=== PATIENT | female | born 2000 | race Two or more races ===

== ENCOUNTER 2021-11-09 23:09 | Day surgery (SDC) | payer OTHER ==
[2021-11-10] MEDS ORDERED: hydrALAZINE 20 MG/ML VIAL SLOW IVP PRN (00:01)
== END 2021-11-10 02:35 | disposition home or self-care (01) ==
LOC: CSHLD/OP 23:09
PROVIDERS: ATTEND Obstetrics & Gynecology
DX: O47.1 False labor at or after 37 completed weeks of gestation (principal); Z3A.37 37 weeks gestation of pregnancy
CPT/HCPCS: 99283

== ENCOUNTER 2021-11-16 12:20 | Outpatient (CLI) | payer OTHER ==
[2021-11-17 17:03] LABS: SARS-CoV-2 PCR by NAA Not Detected (NotDetected)
== END 2021-11-16 12:21 | disposition home or self-care (01) ==
LOC: CSHLAB 12:20
PROVIDERS: ATTEND Obstetrics & Gynecology
DX: Z20.822 Contact with and (suspected) exposure to COVID-19 (principal)
CPT/HCPCS: U0003; U0005

== ENCOUNTER 2021-11-21 05:03 | Inpatient (IN) | payer OTHER ==
[2021-11-21 06:19] VITALS: BMI 31.1
[2021-11-21] MEDS ORDERED: Methylergonovine 0.2 MG/ML VIAL IM PRN ×2 (06:30→19:52)
[2021-11-21] MEDS ORDERED: NS w/ Oxytocin 30 units 500 ML IV SCH ×3 (06:30→20:30)
[2021-11-21] MEDS ORDERED: Ondansetron PF 4 MG/2 ML Vial IVP PRN ×3 (06:30→19:52)
[2021-11-21] MEDS ORDERED: Carboprost 250 MCG/ML AMP IM PRN (06:30)
[2021-11-21] MEDS ORDERED: Lactated Ringer's 1,000 ML IV SCH (06:30)
[2021-11-21] MEDS ORDERED: Butorphanol Tartrate 1 MG/ML VIAL SLOW IVP PRN (06:30)
[2021-11-21] MEDS ORDERED: Lidocaine 1% (PF) 30 ML VIAL SC PRN (06:30)
[2021-11-21] MEDS ORDERED: Ibuprofen 800 MG TAB PO PRN (06:30)
[2021-11-21] MEDS ORDERED: Promethazine HCl 25 MG/ML VIAL IM PRN ×2 (06:30→10:13)
[2021-11-21] MEDS ORDERED: hydrALAZINE 20 MG/ML VIAL SLOW IVP PRN ×2 (06:30→19:52)
[2021-11-21] MEDS ORDERED: Acetaminophen 500 MG TAB PO PRN (06:30)
[2021-11-21] MEDS ORDERED: Misoprostol 200 MCG TAB RC PRN (06:30)
[2021-11-21 06:51] LABS: Mean Corpuscular HGB CONC 32.4 g/dL (32.0-36.0); Mean Corpuscular Hemoglobin 25.8 pg (27.0-33.0); Mean Corpuscular Volume 79.6 fl (81.6-98.3); Mean Platelet Volume 11.3 fl (7.4-10.4); Platelet Count 184 10x3/uL (150-450); RBC Distribution Width 14.7 % (11.5-14.5); Red Blood Cell (RBC) Count 3.88 10x6/uL (3.90-5.03); White Blood Cell (WBC) Count 9.4 10x3/uL (3.5-10.5)
[2021-11-21 07:53] LABS: Syphilis Antibody Nonreactive (Nonreactive); Syphilis Antibody Index 0.04 S/CO (<1.00 Non-Reactive)
[2021-11-21 08:32] LABS: HIV (1/2) Antibody/Antigen Non-Reactive (NonReactive); HIV 1/2 INDEX 0.07 S/CO (<1.00); Hep B Surf Ag Non-Reactive S/CO (NonReactive)
[2021-11-21] MEDS ORDERED: Butorphanol Tartrate 1 MG/ML VIAL ONE (08:44)
[2021-11-21 08:55] LABS: HBSAg Index 0.16 S/CO (0-0.99)
[2021-11-21] MEDS ORDERED: Fentanyl 2 mcg/Bup 0.1% Cadd 100 ML ONE (09:08)
[2021-11-21] MEDS ORDERED: diphenhydrAMINE 50 MG/ML VIAL IVP PRN (10:13)
[2021-11-21] MEDS ORDERED: Lactated Ringer's 500 ML IV PRN (10:13)
[2021-11-21] MEDS ORDERED: Naloxone HCl 0.4 mg/ml Vial IVP PRN ×2 (10:13)
[2021-11-21] MEDS ORDERED: Acetaminophen 325 MG TAB PO PRN (10:13)
[2021-11-21] MEDS ORDERED: Hydrocerin (Eucerin) Cream 120 gm Jar TOP PRN (10:13)
[2021-11-21] MEDS ORDERED: ePHEDrine Sulfate 50 MG/10 ML VIAL SLOW IVP PRN (10:13)
[2021-11-21] MEDS ORDERED: Fentanyl 2 mcg/Bupivacaine 0.1% Cassette 100 ML EPIDURAL SCH (10:15)
[2021-11-21] MEDS ORDERED: Communication Order-Pharmacy FS SCH (10:15)
[2021-11-21] MEDS ORDERED: Methylergonovine 0.2 MG/ML VIAL ONE ×3 (13:38→16:40)
[2021-11-21] MEDS: Misoprostol 200 MCG TAB ONE (14:37)
[2021-11-21] MEDS ORDERED: Tranexamic Acid 1,000 MG in Sodium Chloride 0.9% 250 ML 250 ML IVPB SCH (15:00)
[2021-11-21] MEDS ORDERED: Carboprost 250 MCG/ML AMP ONE ×2 (15:03→15:11)
[2021-11-21] MEDS ORDERED: Misoprostol 200 MCG TAB ONE (15:03)
[2021-11-21] MEDS ORDERED: Tranexamic Acid 1,000 MG/10 ML VIAL ONE ×3 (15:04→16:12)
[2021-11-21] MEDS ORDERED: ceFAZolin 2 GM/Dextrose 50 ML IVPB ONE (15:37)
[2021-11-21] MEDS ORDERED: Diphenoxylate HCl/Atropine Tablet PO PRN (15:40)
[2021-11-21] MEDS ORDERED: Ondansetron PF 4 MG/2 ML Vial ONE ×2 (15:40→15:43)
[2021-11-21] MEDS ORDERED: Fentanyl 100 MCG/2 ML VIAL ONE ×2 (15:41→17:11)
[2021-11-21] MEDS ORDERED: Midazolam HCl 2 mg/2 ml Vial ONE (15:41)
[2021-11-21] MEDS ORDERED: Rocuronium Bromide 10 MG/ML (10ML VIAL) ONE (15:41)
[2021-11-21] MEDS ORDERED: PROPOFOL 20 ML ONE (15:41)
[2021-11-21] MEDS ORDERED: Fentanyl 250 MCG/5 ML VIAL ONE (15:41)
[2021-11-21] MEDS ORDERED: Lidocaine 1% PF 5 ML VIAL ONE (15:43)
[2021-11-21] MEDS ORDERED: Dexamethasone 4 mg/ml Vial ONE (15:43)
[2021-11-21] MEDS ORDERED: Diphenoxylate HCl/Atropine Tablet PO SCH (15:45)
[2021-11-21] MEDS ORDERED: Succinylcholine 200 MG/10 ml SYRINGE FS ONE (16:02)
[2021-11-21] MEDS ORDERED: Methylergonovine 0.2 MG/ML VIAL IM SCH (16:15)
[2021-11-21] MEDS ORDERED: Esmolol 100 MG/10 ML VIAL ONE (16:35)
[2021-11-21] MEDS ORDERED: Phenylephrine 10 MG/ML VIAL ONE (17:03)
[2021-11-21] MEDS ORDERED: PHENYLEPHRINE-NS 100 MCG/ML 10 ML SYRINGE ONE (17:50)
[2021-11-21 18:18] LABS: Hemoglobin 10.8 g/dL (12.0-15.5); Mean Corpuscular HGB CONC 31.6 g/dL (32.0-36.0); Mean Corpuscular Hemoglobin 26.2 pg (27.0-33.0); Mean Platelet Volume 11.4 fl (7.4-10.4); Platelet Count 176 10x3/uL (150-450); RBC Distribution Width 14.5 % (11.5-14.5); Red Blood Cell (RBC) Count 4.12 10x6/uL (3.90-5.03); White Blood Cell (WBC) Count 23.6 10x3/uL (3.5-10.5)
[2021-11-21 18:40] LABS: Band 9 % (5-11); Lymphocytes 3 % (21-51); Monocytes 8 % (0-10); Neutrophil 77 % (42-75)
[2021-11-21 18:41] LABS: Reactive Lymphocytes 3 % (0-10)
[2021-11-21 18:42] LABS: Anisocytosis SLIGHT = 6-15 cells (100X) (0-5/hpf); Large Platelets MODERATE; Microcytosis SLIGHT = 6-15 cells (100X) (0-5/hpf); Ovalocytes SLIGHT = 2-5 cells (100X) (0-1/hpf)
[2021-11-21 18:43] LABS: Platelet Morphology Comment Appears Adequate
[2021-11-21 18:44] LABS: MDiff Complete? YES
[2021-11-21] MEDS: Tranexamic Acid 1,000 MG in Sodium Chloride 0.9% 250 ML 250 ML IVPB SCH (19:10)
[2021-11-21] MEDS ORDERED: Bisacodyl 10 MG SUPP PR PRN (19:52)
[2021-11-21] MEDS ORDERED: Acetaminophen/Codeine 30-300mg Tablet PO PRN (19:52)
[2021-11-21] MEDS ORDERED: Lanolin Ointment 7 GM TUBE TOP PRN (19:52)
[2021-11-21] MEDS ORDERED: Benzocaine-Menthol 82.5 ML CAN TOP PRN (19:52)
[2021-11-21] MEDS ORDERED: Boostrix 0.5 ML (Tdap) VIAL IM ONE (19:52)
[2021-11-21] MEDS ORDERED: HYDROcodone/Acetaminophen 5/325 mg Tablet PO PRN (19:52)
[2021-11-21] MEDS ORDERED: Milk Of Magnesia 30 ML UDCUP PO PRN (19:52)
[2021-11-21] MEDS: Ibuprofen 800 MG TAB PO PRN (21:01)
[2021-11-22 04:40] LABS: Hemoglobin 9.1 g/dL (12.0-15.5); Mean Corpuscular HGB CONC 32.6 g/dL (32.0-36.0); Mean Corpuscular Hemoglobin 26.9 pg (27.0-33.0); Mean Corpuscular Volume 82.5 fl (81.6-98.3); Mean Platelet Volume 11.5 fl (7.4-10.4); Platelet Count 167 10x3/uL (150-450); RBC Distribution Width 14.4 % (11.5-14.5); Red Blood Cell (RBC) Count 3.38 10x6/uL (3.90-5.03); White Blood Cell (WBC) Count 16.8 10x3/uL (3.5-10.5)
[2021-11-22] MEDS: Ibuprofen 800 MG TAB PO PRN ×3 (05:44→21:03)
[2021-11-22] MEDS: Ferrous Sulfate 325 MG TAB PO SCH ×2 (08:04→16:35)
[2021-11-22] MEDS: Docusate 100 MG CAP PO SCH ×3 (08:04→21:02)
[2021-11-22] MEDS: ceFAZolin 2 GM/Dextrose 50 ML 2 GM in Premix Bag 1 BAG IVPB SCH ×3 (08:04→14:40)
[2021-11-22] MEDS: Prenatal Vitamin 1 TAB PO SCH (08:04)
[2021-11-22] MEDS: Misoprostol 100 MCG TAB PO SCH ×2 (10:59→14:39)
[2021-11-22] MEDS: Tranexamic Acid 1,000 MG in Sodium Chloride 0.9% 250 ML 250 ML IVPB SCH (10:59)
[2021-11-22] MEDS ORDERED: ceFAZolin 2 GM/Dextrose 50 ML IVPB ONE (14:35)
[2021-11-22] MEDS ORDERED: Ibuprofen 800 MG TAB ONE ×2 (14:36→21:03)
[2021-11-22] MEDS ORDERED: Misoprostol 100 MCG TAB ONE (14:36)
[2021-11-22] MEDS ORDERED: Acetaminophen/Codeine 30-300mg Tablet ONE (16:33)
[2021-11-22] MEDS ORDERED: Ferrous Sulfate 325 MG TAB ONE (16:34)
[2021-11-22] MEDS ORDERED: Acetaminophen/Codeine 30-300mg Tablet PO PRN (20:56)
[2021-11-22] MEDS ORDERED: Docusate 100 MG CAP ONE (21:03)
[2021-11-23] MEDS ORDERED: Ibuprofen 800 MG TAB ONE (06:08)
[2021-11-23] MEDS: Ibuprofen 800 MG TAB PO PRN (06:16)
[2021-11-23 07:45] VITALS: BP 100/64; TEMP 97.8
[2021-11-23] MEDS ORDERED: Ferrous Sulfate 325 MG TAB ONE (08:52)
[2021-11-23] MEDS ORDERED: Prenatal Vitamin 1 TAB ONE (08:53)
[2021-11-23] MEDS: Prenatal Vitamin 1 TAB PO SCH (09:03)
[2021-11-23] MEDS: Ferrous Sulfate 325 MG TAB PO SCH (09:04)
[2021-11-23] MEDS: Docusate 100 MG CAP PO SCH (09:04)
== END 2021-11-23 11:40 | disposition home or self-care (01) | DRG 806 ==
LOC: CSHLD 05:03 → UNDODISIN 11-22 03:00 → CSHPP 11-22 08:55
PROVIDERS: ADMIT Obstetrics & Gynecology; ATTEND Obstetrics & Gynecology
PROC: 10E0XZZ Delivery of Products of Conception, External Approach (ICD-10-PCS; principal; 2021-11-21)
PROC: 10907ZC Drainage of Amniotic Fluid, Therapeutic from Products of Conception, Via Natural or Artificial Opening (ICD-10-PCS; 2021-11-21)
PROC: 3E033VJ Introduction of Other Hormone into Peripheral Vein, Percutaneous Approach (ICD-10-PCS; 2021-11-21)
PROC: 30233N1 Transfusion of Nonautologous Red Blood Cells into Peripheral Vein, Percutaneous Approach (ICD-10-PCS; 2021-11-21)
PROC: 10D07Z8 Extraction of Products of Conception, Other, Via Natural or Artificial Opening (ICD-10-PCS; 2021-11-21)
DX: O99.02 Anemia complicating childbirth (principal); O72.1 Other immediate postpartum hemorrhage; Z37.0 Single live birth; D62 Acute posthemorrhagic anemia; D50.9 Iron deficiency anemia, unspecified; Z3A.39 39 weeks gestation of pregnancy
CPT/HCPCS: 36415; 36430; 51702; 85027; 86780; 86850; 86900; 86901; 87340; 87389; J0595; J0690; J1100; J2210; J2250; J2370; J2405; J2590; J2704; J3010; J7050; P9016